=== PATIENT | female | born 1980 | race Two or more races ===

== ENCOUNTER 2024-05-14 09:59 | Day surgery (SDC) | payer OTHER ==
[2024-05-13 11:25] VITALS: BMI 31.7
[2024-05-14 12:00] VITALS: TEMP 98
[2024-05-14 12:02] VITALS: BP 117/78; PULSE 89; RESP 19
== END 2024-05-14 12:03 | disposition home or self-care (01) ==
LOC: FASU-ENDO 09:59
PROVIDERS: ATTEND Internal Medicine Gastroenterology
PROC: 0DJD8ZZ Inspection of Lower Intestinal Tract, Via Natural or Artificial Opening Endoscopic (ICD-10-PCS; principal; 2024-05-14 11:18)
DX: Z12.11 Encounter for screening for malignant neoplasm of colon (principal); K64.1 Second degree hemorrhoids
CPT/HCPCS: 81025